=== PATIENT | male | born 1995 | race African-American/Black ===

== ENCOUNTER 2018-02-09 21:56 | Emergency (ER) | payer OTHER ==
[~2018-02-09] VITALS: Ht 177.8 cm; Wt 74.8 kg
--- NOTE | ~2018-02-09 | EKG ---
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
[2018-02-09 22:58] LABS: BASOPHILS 1.1 % (0.0-2.0); EOSINOPHILS 6.7 % (0.0-3.0); LYMPHOCYTES 26.6 % (24.0-44.0); MCH 26.7 pg (26.0-34.0); MCHC 32.7 g/dL (28.0-37.0); MCV 81.6 fL (80.0-100.0); MONOCYTES 8.2 % (1.0-8.0); PLATELET COUNT 303 thou/uL (150-400); POLYS 57.4 % (36.0-66.0); RBC 5.27 mil/uL (4.50-6.00); RDW 12.4 % (10.5-14.5)
[2018-02-09 23:05] LABS: ANION GAP 9 mmol/L (7-16); BUN 13 mg/dL (7-18); CALCIUM 9.9 mg/dL (8.5-10.1); CHLORIDE 102 mmol/L (98-107); CO2 26 mmol/L (21-32); CREATININE 1.1 mg/dL (0.7-1.3); GLUCOSE 94 mg/dL (74-106); POTASSIUM 3.5 mmol/L (3.5-5.1); SODIUM 137 mmol/L (136-145)
[2018-02-09 23:14] LABS: TROPONIN-I < 0.04 ng/mL (<0.06)
[2018-02-09 23:34] VITALS: BP 131/85
== END 2018-02-10 00:01 | disposition home or self-care (01) ==
LOC: ER 21:56
PROVIDERS: Emergency Medicine
DX: R00.2 Palpitations (principal); R06.00 Dyspnea, unspecified; R20.2 Paresthesia of skin